=== PATIENT | male | born 1965 | race Caucasian/White ===

== ENCOUNTER 2016-06-15 05:43 | Inpatient (IN) | payer BC ==
[~2016-06-15] VITALS: Ht 177.8 cm; Wt 92.6 kg
[~2016-06-15 05:43] MED LIST: EXCEDRIN EXTRA1 TAB PO; FIORICET PO
[2016-06-15 06:49] LABS: CALCIUM 8.3 mg/dL (8.5-10.1); CARBON DIOXIDE 27.5 mmol/L (21-32); CHLORIDE SERUM 108 mmol/L (98-107); CREATININE SERUM 1.2 mg/dL (0.7-1.3); GFR1 > 60 mL/min; GLUCOSE SERUM 101 mg/dL (74-106); POTASSIUM SERUM 4.2 mmol/L (3.5-5.1); SODIUM SERUM 142 mmol/L (136-145)
[2016-06-15 06:54] LABS: ALBUMIN 3.6 g/dL (3.4-5.0); ALKALINE PHOSPHATASE 84 U/L (46-116); ALT/SGPT 33 U/L (16-63); AMYLASE 66 U/L (25-115); AST/SGOT 23 U/L (15-37); BILIRUBIN TOTAL 0.32 mg/dL (0.20-1.00); CHOLESTEROL 153 mg/dL (<200); LIPASE 159 IU/L (73-393); TOTAL PROTEIN, SERUM 6.6 g/dL (6.4-8.2)
[2016-06-15 07:10] LABS: HDL CHOLESTEROL 33 mg/dL (40-60)
[2016-06-15 07:11] LABS: BASOPHIL % 0.6 % (0-2); PLATELET COUNT 164 x10^3mcL (130-400); RED CELL DISTRIBUTION WIDTH 15.3 % (11.5-14.5)
[2016-06-15 08:28] LABS: microscopic required? YES; urine erythrocyte 2+ (NEGATIVE)
[2016-06-15 08:51] LABS: AMPHETAMINE QUAL UR NONE DETECTED (NEG <=1000)
[2016-06-15 09:41] LABS: CHOLESTEROL/HDL RATIO 4.3; MAGNESIUM 1.9 mg/dL (1.8-2.4); PHOSPHOROUS 2.4 mg/dL (2.5-4.9)
[2016-06-15 09:51] LABS: FREE T4 0.84 ng/dL (0.76-1.46); FREE THYROXINE INDEX 2.2 ug/dL (1.4-4.5); T4(THYROXINE) 6.4 ug/dL (4.7-13.3)
[2016-06-15 11:03] VITALS: BP 116/76
[2016-06-15 11:04] LABS: T3 TOTAL 1.09 ng/mL
[2016-06-15 13:25] VITALS: BP 123/88
[2016-06-15 17:39] VITALS: BP 123/76
[2016-06-15 21:58] VITALS: BP 134/92
[2016-06-16 06:11] VITALS: BP 137/84
[2016-06-16 06:13] LABS: BASOPHIL % 0.6 % (0-2); PLATELET COUNT 140 x10^3mcL (130-400)
[2016-06-16 06:40] LABS: CARBON DIOXIDE 28.2 mmol/L (21-32); CHLORIDE SERUM 108 mmol/L (98-107); CREATININE SERUM 1.2 mg/dL (0.7-1.3); GFR1 > 60 mL/min; GLUCOSE SERUM 95 mg/dL (74-106); MAGNESIUM 1.8 mg/dL (1.8-2.4); PHOSPHOROUS 2.8 mg/dL (2.5-4.9); POTASSIUM SERUM 4.3 mmol/L (3.5-5.1); SODIUM SERUM 144 mmol/L (136-145)
[2016-06-16 06:44] LABS: RED CELL DISTRIBUTION WIDTH 15.1 % (11.5-14.5)
[2016-06-16 10:00] VITALS: BP 115/80
[2016-06-16] MEDS ORDERED: IBUPROFEN400 MG PO (12:55)
[2016-06-16 13:31] VITALS: BP 115/80
[2016-06-16] MEDS ORDERED: HIB240 TP (16:35)
[2016-06-16] MEDS ORDERED: BACTROBAN21 (16:35)
== END 2016-06-16 14:15 | disposition home or self-care (01) | DRG 206 ==
LOC: ED 05:43 → DU 08:43
PROVIDERS: Emergency Medicine; ADMIT Family Medicine
DX: M94.0 Chondrocostal junction syndrome [Tietze] (principal); E78.5 Hyperlipidemia, unspecified; E83.39 Other disorders of phosphorus metabolism; E87.8 Other disorders of electrolyte and fluid balance, not elsewhere classified; R31.9 Hematuria, unspecified; E78.2 Mixed hyperlipidemia; Z88.8 Allergy status to other drugs, medicaments and biological substances
CPT/HCPCS: 80307; 83880; 84439; J7030; Q0092

== ENCOUNTER 2018-01-10 05:22 | Emergency (ER) | payer OTHER ==
[~2018-01-10] VITALS: Ht 177.8 cm; Wt 89.4 kg
[~2018-01-10 05:22] MED LIST changes: +BACTROBAN21; +HIB240 TP; +IBUPROFEN400 MG PO
[2018-01-10 05:28] VITALS: Ht 177.8 cm; Wt 89.4 kg
[2018-01-10 06:46] VITALS: BP 120/90
== END 2018-01-10 06:47 | disposition home or self-care (01) ==
LOC: ED 05:22
DX: S93.401A Sprain of unspecified ligament of right ankle, initial encounter (principal); S83.92XA Sprain of unspecified site of left knee, initial encounter; S50.01XA Contusion of right elbow, initial encounter; X58.XXXA Exposure to other specified factors, initial encounter; Y93.89 Activity, other specified; Y92.89 Other specified places as the place of occurrence of the external cause; Y99.8 Other external cause status

== ENCOUNTER 2019-05-03 07:17 | Emergency (ER) | payer OTHER ==
[~2019-05-03] VITALS: Ht 182.9 cm; Wt 91.2 kg
[2019-05-03 07:27] VITALS: Ht 182.9 cm; Wt 91.2 kg
[2019-05-03 07:50] VITALS: BP 124/93
== END 2019-05-03 08:44 | disposition home or self-care (01) ==
LOC: ED 07:17
DX: R60.1 Generalized edema (principal); K21.9 Gastro-esophageal reflux disease without esophagitis; I10 Essential (primary) hypertension; Z88.8 Allergy status to other drugs, medicaments and biological substances; Z98.890 Other specified postprocedural states